=== PATIENT | male | born 1980 | race Caucasian/White ===

== ENCOUNTER 2024-02-18 16:24 | Emergency (ER) | payer OTHER ==
--- NOTE | 2024-02-18 16:48 | ED Physician Documentation ---
PD HPI CHEST PAIN - Stated complaint Stated Complaint: CHEST PX - Chief complaint Chief Complaint: Cardiac - History obtained from History obtained from: Patient - Additional information Additional information: 43-year-old gentleman with type 2 diabetes on Ozempic and Jardiance, and hypercholesterolemia presents for the evaluation of chest pain. At 345 this afternoon he was doing desk work, not particularly exertional or stressful and developed substernal chest pressure that lasted about 10 minutes, then weaned and then came back again and has now weaned again. It was associate with nausea and shortness of breath. No pedal edema or calf pain. He has no family or personal history of coronary disease noting that his father did of heart failure in his 40s but that was related to retroviral treatment for AIDS. PD PAST MEDICAL HISTORY - Past Medical History Past Medical History: Yes Endocrine/Autoimmune: Type 2 diabetes - Past Surgical History Past Surgical History: Yes General: Cholecystectomy - Present Medications Home Medications: Ambulatory Orders Medication Instructions Recorded Confirmed Empagliflozin/Metformin HCl 1 each PO DAILY 02/18/24 02/18/24 [Synjardy Xr 12.5-1,000 mg Tab] Esomeprazole Magnesium [Nexium] 40 mg PO DAILY 02/18/24 02/18/24 Semaglutide [Ozempic] 0.25 mg SQ DAILY 02/18/24 02/18/24 - Allergies Allergies/Adverse Reactions: Allergies Allergy/AdvReac Type Severity Reaction Status Date / Time No Known Drug Allergies Allergy Verified 02/18/24 16:52 - Social History Does the pt smoke?: No Smoking Status: Never smoker Does the pt drink ETOH?: No Does the pt have substance abuse?: No - Immunizations Immunizations are current?: Yes PD ED PE NORMAL - Vitals Vital signs reviewed: Yes - General General: Alert and oriented X 3, No acute distress - Neck Neck: Supple, no meningeal sign - Cardiac Cardiac: RRR, No murmur - Respiratory Respiratory: No respiratory distress, Clear bilaterally - Abdomen Abdomen: Non tender - Extremities Extremities: No edema, Other - Neuro Neuro: Alert and oriented X 3, Normal speech Results - Vitals Vitals: Vital Signs - 24 hr 02/18/24 02/18/24 16:28 18:31 Temperature 36.2 C L Heart Rate 90 82 Respiratory 20 23 Rate Blood Pressure 135/99 H 140/89 H O2 Saturation 99 98 Oxygen O2 Source Room air - EKG (time done) 1649 EKG releavant findings:: EKG personally interpreted by author of this note. Relevant findings are: Rate: Rate (enter#) (77) Rhythm: NSR Shepherd: Normal Intervals: Normal [place] QRS: Normal Ischemia: Q waves (v small inferior) Computer interpretation: Agree with computer 1845 EKG releavant findings:: EKG personally interpreted by author of this note. Relevant findings are: Rate: Rate (enter#) (81) Rhythm: NSR Shepherd: Normal Intervals: Normal [place] QRS: Normal Ischemia: Normal ST segments Computer interpretation: Agree with computer - Labs Labs: Laboratory Tests 02/18/24 02/18/24 17:20 17:40 WBC 8.4 RBC 5.06 Hgb 16.1 Hct 45.6 MCV 90.1 MCH 31.8 H MCHC 35.3 RDW 12.1 Plt Count 252 MPV 9.8 Neut # (Auto) 5.7 Lymph # (Auto) 1.8 Gentry # (Auto) 0.7 Eos # (Auto) 0.1 Baso # (Auto) 0.1 Absolute Nucleated RBC 0.00 Nucleated RBC % 0.0 Sodium 139 Potassium 4.2 Chloride 104 Carbon Dioxide 27 Anion Gap 8.0 BUN 20 Creatinine 1.0 Estimated GFR (MDRD) 81 L Glucose 112 H Calcium 9.6 Total Bilirubin 0.5 AST 18 ALT 32 Alkaline Phosphatase 44 Troponin I High Sens < 2.3 L Total Protein 6.9 Albumin 4.7 Globulin 2.2 Albumin/Globulin Ratio 2.1 Lipase 20 PD Medical Decision Making - ED course ED course: He presents with episodic chest pain, his heart score is 3. Nothing in the history or physical to suggest PE or dissection. No radiation to the back. On initial evaluation his pain was only mild, "a pressure. Initial troponin was negative as was his EKG and other basic labs. Around 6:30 PM he started having more significant chest pressure and EKG was repeated and still nonischemic without any interval significant change. No ST elevation or depression. This was followed by a GI cocktail with Maalox and lidocaine. Care to nurse practitioner Neptali at 7 PM pending reevaluation with consideration for repeat troponin if GI cocktail was ineffective. Departure - Departure Clinical Impression: Chest pain Qualifiers: Chest pain type: unspecified Qualified Code(s): R07.9 - Chest pain, unspecified Condition: Good Record reviewed to determine appropriate education?: Yes Instructions: ED Chest Pain Atypical Unkn Cause Comments: Call your doctor to arrange a follow-up appointment, make the next available appointment. In the interim, return anytime if worse or if new symptoms develop. Forms: PCP List
--- NOTE | 2024-02-18 17:12 | XRAY Report ---
PROCEDURE: Chest 1V INDICATIONS: Chest Pain TECHNIQUE: One view of the chest was acquired. COMPARISON: None. FINDINGS: Surgical changes and devices: None. Lungs and pleura: No pleural effusions or pneumothorax. Lungs are clear. Mediastinum: Mediastinal contours appear normal. Heart size is mildly prominent. Bones and chest wall: No suspicious bony lesions. Overlying soft tissues appear unremarkable. IMPRESSION: No acute cardiopulmonary process. Reviewed by: Jena Marinelli MD on 02/18/2024 5:11 PM PDT Approved by: Jena Marinelli MD on 02/18/2024 5:11 PM PDT Station ID: [id number]
[2024-02-18 17:30] LABS: BASOPHILS # (AUTO) 0.1 10^3/uL (0.0-0.1); BASOPHILS % (AUTO) 0.6 %; EOSINOPHILS # (AUTO) 0.1 10^3/uL (0.0-0.7); EOSINOPHILS % (AUTO) 1.3 %; HCT - HEMATOCRIT 45.6 % (42.0-52.0); HGB - HEMOGLOBIN 16.1 g/dL (14.0-18.0); LYMPHOCYTES # (AUTO) 1.8 10^3/uL (1.5-3.5); LYMPHOCYTES % (AUTO) 21.1 %; MEAN CORPUSCULAR HEMOGLOBIN 31.8 pg (27.0-31.0); MEAN CORPUSCULAR HGB CONC 35.3 g/dL (32.0-36.0); MEAN CORPUSCULAR VOLUME 90.1 fL (80.0-94.0); MEAN PLATELET VOLUME 9.8 fL (7.4-11.4); MONOCYTES # (AUTO) 0.7 10^3/uL (0.0-1.0); MONOCYTES % (AUTO) 8.1 %; NEUTROPHILS # (AUTO) 5.7 10^3/uL (1.5-6.6); NEUTROPHILS % (AUTO) 68.5 %; PLT - PLATELET COUNT 252 10^3/uL (130-450); RED BLOOD COUNT 5.06 10^6/uL (4.70-6.10); RED CELL DISTRIBUTION WIDTH 12.1 % (12.0-15.0); WHITE BLOOD COUNT 8.4 x10^3/uL (4.8-10.8)
[2024-02-18 18:32] LABS: ALBUMIN 4.7 g/dL (3.2-5.5); ALBUMIN/GLOBULIN RATIO 2.1 (1.0-2.2); ALKALINE PHOSPHATASE 44 IU/L (42-121); ALT ALANINE AMINOTRANSFERASE 32 IU/L (10-60); AST ASPARTATE AMINOTRANSFERASE 18 IU/L (10-42); BILIRUBIN,TOTAL 0.5 mg/dL (0.2-1.0); BUN - BLOOD UREA NITROGEN 20 mg/dL (6-20); CALCIUM 9.6 mg/dL (8.5-10.3); CARBON DIOXIDE - CO2 27 mmol/L (21-32); CHLORIDE 104 mmol/L (101-111); GFR - MDRD 81 (>89); GLUCOSE 112 mg/dL (74-104); LIPASE 20 U/L (11-82); POTASSIUM 4.2 mmol/L (3.5-4.5); SODIUM 139 mmol/L (135-145); TOTAL PROTEIN 6.9 g/dL (6.4-8.9)
[2024-02-18 18:34] LABS: TROPONIN I HIGH SENSITIVITY < 2.3 ng/L (2.3-19.7)
[2024-02-18] MEDS: MAG HYDROX/AL HYDROX/SIMETH 30 ML UDC PO STA (18:56)
[2024-02-18] MEDS: LIDOCAINE VISCOUS 2% 15 ML UDC MM STA (18:56)
[2024-02-18 21:52] VITALS: BP 136/88; O2SAT 98
== END 2024-02-18 21:45 | disposition home or self-care (01) ==
LOC: ED 16:24
DX: R07.9 Chest pain, unspecified (principal); E11.9 Type 2 diabetes mellitus without complications; Z79.85 Long-term (current) use of injectable non-insulin antidiabetic drugs; E78.00 Pure hypercholesterolemia, unspecified
CPT/HCPCS: 36415; 71045; 80053; 83690; 84484; 85025; 93005; 99284; A9270